=== PATIENT | female | born 1960 | race Caucasian/White ===

== ENCOUNTER 2023-07-21 13:51 | Emergency (ER) | payer SELFPAY ==
[~2023-07-21] VITALS: Ht 162.6 cm; Wt 47.7 kg
[2023-07-21 14:09] LABS: BASO # 0.04 K/mm3 (0.02-0.10); EOS # 0.16 K/mm3 (0.04-0.40); EOS % 1.1 % (1.0-5.0); HEMATOCRIT 45.4 % (37.0-47.0); HEMOGLOBIN 14.6 g/dL (12.5-16.0); LYMPH# 1.84 K/mm3 (1.50-4.00); MEAN CELL VOLUME 100 fl (78-100); MEAN CORPUSCULAR HEMOGLOBIN 32 pg (27-31); MEAN CORPUSCULAR HGB CONC 32 g/dL (33-37); MEAN PLATELET VOLUME 9.5 fl (7.4-10.4); MONO # 0.72 K/mm3 (0.20-0.80); NEU # 11.74 K/mm3 (1.40-6.50); PLATELET COUNT 266 K/mm3 (130-400); RED BLOOD COUNT 4.56 M/mm3 (4.10-5.30); RED CELL DISTRIBUTION WIDTH 11.8 % (11.5-14.5); WHITE BLOOD COUNT 14.5 K/mm3 (4.8-10.8)
[2023-07-21] MEDS ORDERED: Ondansetron 4 MG/2 ML VIAL IV ONE (14:15)
[2023-07-21] MEDS ORDERED: NS 1,000 ML IV SCH (14:15)
[2023-07-21] MEDS ORDERED: Ketorolac 30 MG/ML VIAL IV ONE (14:15)
[2023-07-21 14:17] LABS: ALBUMIN 4.4 g/dL (3.4-4.8)
[2023-07-21 14:18] LABS: CALCIUM 9.5 mg/dL (8.3-10.5)
[2023-07-21 14:20] LABS: TOTAL PROTEIN 6.9 g/dL (6.2-8.1)
[2023-07-21 14:21] LABS: TOTAL BILIRUBIN 0.2 mg/dL (0.2-1.2)
[2023-07-21] MEDS ORDERED: Iohexol 300 - 100 ML VIAL IV ONE (14:33)
[2023-07-21 14:38] LABS: URINE APPEARANCE SLIGHTLY CLOUDY (CLEAR); URINE COLOR YELLOW (YELLOW)
[2023-07-21 14:39] LABS: URINE BILIRUBIN NEGATIVE (NEGATIVE); URINE BLOOD 2+ (NEGATIVE); URINE GLUCOSE NEGATIVE (NEGATIVE); URINE KETONE NEGATIVE (NEGATIVE); URINE LEUKOCYTE ESTERASE TRACE (NEGATIVE); URINE NITRATE NEGATIVE (NEGATIVE); URINE PROTEIN(semi-quant) 1+ (NEGATIVE)
[2023-07-21] MEDS ORDERED: traMADol 50 MG TAB PO ONE (16:15)
[2023-07-21] MEDS ORDERED: ZOFRAN ODT4 MG PO (16:17)
[2023-07-21] MEDS ORDERED: TRAMADOL 50 MG TAB PO (16:18)
[2023-07-21 16:45] VITALS: BP 135/79
== END 2023-07-21 17:04 | disposition home or self-care (01) ==
LOC: ED 13:51
PROVIDERS: Nurse Practitioner
DX: N94.89 Other specified conditions associated with female genital organs and menstrual cycle (principal)
CPT/HCPCS: J1885; J2405; J7030; Q9967